=== PATIENT | female | born 1955 | race Caucasian/White ===

== ENCOUNTER 2019-04-14 08:11 | Emergency (ER) | payer OTHER ==
[2019-04-14 08:41] LABS: #Lymphocytes 1.3 thou/uL (1.20-3.40); #Monocytes 0.6 thou/uL (0.11-0.59); #Neutrophils 9.9 thou/uL (1.40-6.50); %Basophils 0.3 % (0.0-1.0); %Eosinophils 0.4 % (0.0-10.0); %Lymphocytes 10.7 % (21.0-51.0); %Monocytes 4.9 % (0.0-10.0); %Neutrophils 83.7 % (42.0-75.0); Hemoglobin 15.9 g/dL (12.0-16.0); Mean Corpuscular HGB CONC 33.7 g/dL (32.0-36.0); Mean Corpuscular Hemoglobin 29.9 pg (27.0-31.0); Mean Corpuscular Volume 88.9 fL (78.0-98.0); Mean Platelet Volume 7.4 fL (7.4-10.4); Platelet Count 388 thou/uL (130-400); RBC Distribution Width 11.8 % (11.5-14.5); Red Blood Cell (RBC) Count 5.31 mill/uL (4.20-5.40); White Blood Cell (WBC) Count 11.9 thou/uL (4.8-10.8)
[2019-04-14] MEDS ORDERED: Lorazepam 2 MG/ML VIAL ONE (08:50)
[2019-04-14 09:03] LABS: ALT (SGPT) 26 U/L (8-55); AST (SGOT) 24 U/L (5-34); Alkaline Phosphatase 108 U/L (40-110); Anion Gap 14 mmol/L (10-20); BUN (Urea Nitrogen) 9 mg/dL (9.8-20.1); Bilirubin, Total 0.3 mg/dL (0.2-1.2); CK (CPK) 54 U/L (29-168); Calc. Creatinine Clearance 0 mL/min (70-130); Calcium 9.5 mg/dL (7.8-10.44); Carbon Dioxide 23 mmol/L (23-31); Chloride 108 mmol/L (98-107); Estimated GFR-MDRD 75; Globulin 2.3 g/dL (2.4-3.5); Glucose 83 mg/dL (80-115); Potassium 4.3 mmol/L (3.5-5.1); Protein, Total 6.3 g/dL (6.0-8.3); Sodium 141 mmol/L (136-145)
--- NOTE | 2019-04-14 09:12 | CT ---
CT HEAD WITHOUT IV CONTRAST COMPARISON: None HISTORY: Headache. TECHNIQUE: Axial CT imaging at 5 mm intervals from vertex through skull base without contrast FINDINGS: There is a subcentimeter low-density focus seen within the left frontal lobe talley radiata likely re lated to a remote area of ischemia. There is no evidence of an acute vertical infarction, hemorrhage, mass effect, or midline shift. The ventricular system is normal in size, shape, and posit ion. There is partial opacification of the right sphenoid sinus. Remaining visualized paranasal sinuses as well as mastoid air cells are clear. Osseous structures appear intact. IMPRESSION: 1. No acute intracranial abnormality is demonstrated. 2. Sinus disease involving the right sphenoid sinus.
--- NOTE | 2019-04-15 17:22 | EKG ---
Test Reason : Blood Pressure : / mmHG Vent. Rate : 079 BPM Atrial Rate : 079 BPM P-R Int : 140 ms QRS Dur : 086 ms QT Int : 390 ms P-R-T Axes : 068 047 046 degrees QTc Int : 447 ms Normal sinus rhythm Possible Left atrial enlargement Borderline ECG Confirmed by NORMA KEE, MAIDA ([id number]), editor greeting card LADI YANES ([id number]) on 04/15/2019 5:22:18 PM Referred By: Confirmed By:MAIDA GREEN MD
== END 2019-04-14 10:45 | disposition home or self-care (01) ==
LOC: ERS 08:11
DX: I16.0 Hypertensive urgency (principal); R51 Headache; E78.5 Hyperlipidemia, unspecified; E78.00 Pure hypercholesterolemia, unspecified; Z79.899 Other long term (current) drug therapy
CPT/HCPCS: 36415; 70450; 80053; 82550; 85025; 93005; 96361; 96374; 96375; J2060

== ENCOUNTER 2021-07-05 21:05 | Inpatient (IN) | payer OTHER, SELFPAY ==
[~2021-07-05 21:05] MED LIST: Iopamidol-370 76% 500 ML 1 ML ONE
[2021-07-05 22:14] LABS: Hemoglobin 13.3 g/dL (12.0-16.0); Mean Corpuscular HGB CONC 33.2 g/dL (32.0-36.0); Mean Corpuscular Hemoglobin 31.4 pg (27.0-31.0); Mean Corpuscular Volume 94.7 fL (78.0-98.0); Mean Platelet Volume 7.4 fL (7.4-10.4); Platelet Count 278 thou/uL (130-400); RBC Distribution Width 11.6 % (11.5-14.5); Red Blood Cell (RBC) Count 4.24 mill/uL (4.20-5.40); White Blood Cell (WBC) Count 15.5 thou/uL (4.8-10.8)
[2021-07-05 22:17] LABS: Bacteria/HPF 4+ HPF (None Seen); Bilirubin Negative (Negative); Blood, Urine Trace (Negative); Clarity Turbid (Clear); Glucose, Urine (Dipstick) Normal (Negative); Ketone, Urine 60 mg/dL (Negative); Leukocyte Negative Leu/uL (Negative); Nitrite Negative (Negative); Protein, Urine (Dipstick) 70 mg/dL (Neg-Trace); RBC/HPF 0-3 HPF (0-3); Renal Epithelial 0-3 HPF (None Seen); Specific Gravity, Urine 1.022 (1.002-1.036); Urobilinogen Normal mg/dL (Less than 2); pH, Urine 5.5 (5.0-9.0)
[2021-07-05 22:33] LABS: ALT (SGPT) 38 U/L (8-55); AST (SGOT) 55 U/L (5-34); Albumin 3.2 g/dL (3.4-4.8); Alkaline Phosphatase 96 U/L (40-110); Anion Gap 22 mmol/L (10-20); BUN (Urea Nitrogen) 25 mg/dL (9.8-20.1); Bilirubin, Total 0.5 mg/dL (0.2-1.2); Calc. Creatinine Clearance 0 mL/min (70-130); Calcium 9.1 mg/dL (7.8-10.44); Carbon Dioxide 21 mmol/L (23-31); Chloride 102 mmol/L (98-107); Globulin 2.5 g/dL (2.4-3.5); Glucose 115 mg/dL (80-115); Potassium 4.2 mmol/L (3.5-5.1); Protein, Total 5.7 g/dL (5.8-8.1); Sodium 141 mmol/L (136-145)
[2021-07-05 22:35] LABS: Band 19 % (5-11); Lymphocytes 2 % (21-51); MDiff Complete? YES; Monocytes 7 % (0-10); Myelocyte 6 % (0-0); Neutrophil 66 % (42-75); Platelet Morphology Comment Appears Adequate; RBC Morphology Normal
[2021-07-05 22:57] LABS: CKMB 5.1 ng/mL (0-6.6)
[2021-07-05] MEDS ORDERED: Enoxaparin Sodium 60 MG/0.6 ML SYRINGE ONE (23:24)
[2021-07-05] MEDS ORDERED: Lorazepam 2 MG/ML VIAL ONE (23:30)
[2021-07-05 23:39] LABS: INR-International Normal Ratio 1.1; PTT 32.6 sec (22.9-36.1); Prothrombin Time 14.8 sec (12.0-14.7)
[2021-07-06 01:02] LABS: Lactic Acid 1.3 mmol/L (0.5-2.2)
[2021-07-06 01:25] LABS: Troponin I 2.035 ng/mL (< 0.028)
[2021-07-06] MEDS ORDERED: Ondansetron PF 4 MG/2 ML Vial IVP PRN (01:31)
[2021-07-06] MEDS ORDERED: cefTRIAXone\\ROCEPHIN 1 GM VIAL ONE (01:53)
[2021-07-06] MEDS: cefTRIAXone\\ROCEPHIN 1 GM in Sodium Chloride 0.9% 100 ML IVPB SCH (02:07)
[2021-07-06] MEDS ORDERED: Azithromycin 500 MG VIAL ONE (03:00)
[2021-07-06] MEDS: Azithromycin 500 MG in Sodium Chloride 0.9% 250 ML 250 ML IVPB SCH (03:24)
[2021-07-06 03:35] LABS: Hemoglobin 12.2 g/dL (12.0-16.0); Mean Corpuscular HGB CONC 33.6 g/dL (32.0-36.0); Mean Corpuscular Hemoglobin 31.3 pg (27.0-31.0); Mean Corpuscular Volume 93.2 fL (78.0-98.0); Mean Platelet Volume 7.3 fL (7.4-10.4); Platelet Count 265 thou/uL (130-400); RBC Distribution Width 11.6 % (11.5-14.5); Red Blood Cell (RBC) Count 3.88 mill/uL (4.20-5.40); White Blood Cell (WBC) Count 10.9 thou/uL (4.8-10.8)
[2021-07-06 03:53] LABS: Anion Gap 19 mmol/L (10-20); BUN (Urea Nitrogen) 25 mg/dL (9.8-20.1); Band 19 % (5-11); Calc. Creatinine Clearance 73 mL/min (70-130); Calcium 8.7 mg/dL (7.8-10.44); Carbon Dioxide 18 mmol/L (23-31); Chloride 103 mmol/L (98-107); Glucose 185 mg/dL (80-115); Lymphocytes 2 % (21-51); MDiff Complete? YES; Monocytes 3 % (0-10); Myelocyte 7 % (0-0); Neutrophil 69 % (42-75); Platelet Morphology Comment Appears Adequate; Potassium 4.3 mmol/L (3.5-5.1); RBC Morphology Normal; Sodium 136 mmol/L (136-145)
[2021-07-06] MEDS ORDERED: ALPRAZolam 0.25 MG TAB ONE ×3 (05:26→15:26)
[2021-07-06] MEDS ORDERED: ALPRAZolam 0.25 MG TAB PO SCH (05:30)
[2021-07-06] MEDS ORDERED: Albuterol 200 PUFF (6.7GM INHALER) INH PRN (08:38)
[2021-07-06] MEDS ORDERED: Famotidine 20 MG TAB PO SCH (09:00)
[2021-07-06] MEDS ORDERED: Famotidine 20 MG TAB ONE (09:40)
[2021-07-06] MEDS ORDERED: Ascorbic Acid 500 mg Chewable Tablet ONE (09:42)
[2021-07-06] MEDS ORDERED: Zinc Sulfate 220 MG CAP ONE (09:42)
[2021-07-06] MEDS ORDERED: REMDESIVIR 200 MG in Sodium Chloride 0.9% 250 ML 210 ML IV SCH (09:45)
[2021-07-06 09:53] LABS: Magnesium 1.5 mg/dL (1.6-2.6)
[2021-07-06] MEDS: Ascorbic Acid 500 mg Chewable Tablet PO SCH (09:59)
[2021-07-06] MEDS: Aspirin 81 mg Enteric Coated Tablet PO SCH (10:01)
[2021-07-06] MEDS ORDERED: Aspirin 81 mg Enteric Coated Tablet ONE (10:01)
[2021-07-06] MEDS: Zinc Sulfate 220 MG CAP PO SCH (10:02)
[2021-07-06] MEDS: Dexamethasone 10 MG/ML VIAL SLOW IVP SCH ×2 (10:03→21:08)
[2021-07-06] MEDS ORDERED: Enoxaparin Sodium 60 MG/0.6 ML SYRINGE ONE (10:10)
[2021-07-06] MEDS: Enoxaparin Sodium 60 MG/0.6 ML SYRINGE SC SCH ×2 (10:12→21:08)
[2021-07-06] MEDS ORDERED: Magnesium Sulfate 4 GM in Sodium Chloride 0.9% 250 ML 250 ML IVPB SCH (11:15)
[2021-07-06] MEDS: Multivit, Therapeutic 1 TAB PO SCH (11:33)
[2021-07-06] MEDS: ALPRAZolam 0.25 MG TAB PO PRN ×3 (11:33→21:08)
[2021-07-06] MEDS: Loperamide HCl 2 MG CAP PO PRN (17:05)
[2021-07-06] MEDS: Albuterol 200 PUFF (6.7GM INHALER) INH SCH ×3 (17:05→23:23)
[2021-07-06 18:11] VITALS: BMI 22.4
[2021-07-06 20:54] LABS: Critical Call Chem Troponin I RESULT DECREASING
[2021-07-06] MEDS: Mometasone 200 MCG/Formoterol 5 MCG 120 PUFF INHALER INH SCH (21:08)
[2021-07-07 00:10] LABS: SARS-CoV-2 PCR by NAA DETECTED (NotDetected)
[2021-07-07] MEDS: cefTRIAXone\\ROCEPHIN 1 GM in Sodium Chloride 0.9% 100 ML IVPB SCH (02:03)
[2021-07-07] MEDS: Azithromycin 500 MG in Sodium Chloride 0.9% 250 ML 250 ML IVPB SCH (02:55)
[2021-07-07] MEDS: Albuterol 200 PUFF (6.7GM INHALER) INH SCH ×6 (03:00→20:22)
[2021-07-07] MEDS: ALPRAZolam 0.25 MG TAB PO PRN ×4 (03:59→22:19)
[2021-07-07 06:10] LABS: Band 21 % (5-11); Hemoglobin 11.2 g/dL (12.0-16.0); Hypochromia SLIGHT = 6-15 cells (100X) (0-5/hpf); Lymphocytes 3 % (21-51); MDiff Complete? YES; Mean Corpuscular HGB CONC 33.9 g/dL (32.0-36.0); Mean Corpuscular Hemoglobin 31.6 pg (27.0-31.0); Mean Corpuscular Volume 93.1 fL (78.0-98.0); Mean Platelet Volume 7.6 fL (7.4-10.4); Metamyelocyte 1 % (0-0); Monocytes 11 % (0-10); Neutrophil 64 % (42-75); Platelet Count 345 thou/uL (130-400); Platelet Morphology Comment Appears Adequate; RBC Distribution Width 11.4 % (11.5-14.5); Red Blood Cell (RBC) Count 3.55 mill/uL (4.20-5.40)
[2021-07-07 06:11] LABS: Anion Gap 12 mmol/L (10-20); BUN (Urea Nitrogen) 22 mg/dL (9.8-20.1); Calc. Creatinine Clearance 81 mL/min (70-130); Carbon Dioxide 25 mmol/L (23-31); Chloride 104 mmol/L (98-107); Glucose 164 mg/dL (80-115); Potassium 3.7 mmol/L (3.5-5.1); Sodium 137 mmol/L (136-145)
[2021-07-07] MEDS: Mometasone 200 MCG/Formoterol 5 MCG 120 PUFF INHALER INH SCH ×2 (06:15→18:52)
[2021-07-07 06:17] LABS: ALT (SGPT) 69 U/L (8-55); AST (SGOT) 80 U/L (5-34); Albumin 2.6 g/dL (3.4-4.8); Alkaline Phosphatase 80 U/L (40-110); Bilirubin, Direct 0.2 mg/dL (0.1-0.3); Bilirubin, Total 0.2 mg/dL (0.2-1.2); Protein, Total 5.3 g/dL (5.8-8.1)
[2021-07-07 06:18] LABS: CRP (Inflammatory) 15.92 mg/dL (= or < 0.5); Magnesium 2.6 mg/dL (1.6-2.6)
[2021-07-07] MEDS ORDERED: REMDESIVIR 100 MG in Sodium Chloride 0.9% 250 ML 230 ML IV SCH (09:00)
[2021-07-07] MEDS: Dexamethasone 10 MG/ML VIAL SLOW IVP SCH ×2 (09:36→20:21)
[2021-07-07] MEDS: Enoxaparin Sodium 60 MG/0.6 ML SYRINGE SC SCH ×2 (09:36→20:22)
[2021-07-07] MEDS: Ascorbic Acid 500 mg Chewable Tablet PO SCH (09:36)
[2021-07-07] MEDS: Multivit, Therapeutic 1 TAB PO SCH (09:36)
[2021-07-07] MEDS: Aspirin 81 mg Enteric Coated Tablet PO SCH (09:36)
[2021-07-07] MEDS: REMDESIVIR 100 MG in Sodium Chloride 0.9% 250 ML 230 ML IV SCH (09:37)
[2021-07-07] MEDS: Zinc Sulfate 220 MG CAP PO SCH (09:38)
[2021-07-08] MEDS: cefTRIAXone\\ROCEPHIN 1 GM in Sodium Chloride 0.9% 100 ML IVPB SCH (01:55)
[2021-07-08] MEDS: Albuterol 200 PUFF (6.7GM INHALER) INH SCH ×7 (02:12→23:42)
[2021-07-08] MEDS: Acetaminophen 325 MG TAB PO PRN ×3 (02:14→22:15)
[2021-07-08] MEDS ORDERED: Azithromycin 500 MG in Sodium Chloride 0.9% 250 ML 250 ML IVPB SCH (03:00)
[2021-07-08] MEDS: ALPRAZolam 0.25 MG TAB PO PRN ×4 (04:34→22:15)
[2021-07-08 06:04] LABS: ALT (SGPT) 80 U/L (8-55); AST (SGOT) 57 U/L (5-34); Albumin 2.6 g/dL (3.4-4.8); Alkaline Phosphatase 79 U/L (40-110); Bilirubin, Direct 0.2 mg/dL (0.1-0.3); Bilirubin, Total 0.3 mg/dL (0.2-1.2); Protein, Total 5.1 g/dL (5.8-8.1)
[2021-07-08] MEDS: Ascorbic Acid 500 mg Chewable Tablet PO SCH (07:53)
[2021-07-08] MEDS: Aspirin 81 mg Enteric Coated Tablet PO SCH (07:54)
[2021-07-08] MEDS: Dexamethasone 10 MG/ML VIAL SLOW IVP SCH ×2 (07:54→20:49)
[2021-07-08] MEDS: Enoxaparin Sodium 60 MG/0.6 ML SYRINGE SC SCH ×2 (07:54→20:49)
[2021-07-08] MEDS: Multivit, Therapeutic 1 TAB PO SCH ×2 (07:54→10:11)
[2021-07-08] MEDS: REMDESIVIR 100 MG in Sodium Chloride 0.9% 250 ML 230 ML IV SCH (07:54)
[2021-07-08] MEDS: Zinc Sulfate 220 MG CAP PO SCH (07:55)
[2021-07-08 08:37] LABS: Anion Gap 15 mmol/L (10-20); BUN (Urea Nitrogen) 27 mg/dL (9.8-20.1); Calc. Creatinine Clearance 80 mL/min (70-130); Carbon Dioxide 19 mmol/L (23-31); Chloride 108 mmol/L (98-107); Glucose 141 mg/dL (80-115); Potassium 4.1 mmol/L (3.5-5.1); Sodium 138 mmol/L (136-145)
[2021-07-08 08:38] LABS: Calcium 7.8 mg/dL (7.8-10.44)
[2021-07-08 09:40] LABS: Band 13 % (5-11); Hemoglobin 12.7 g/dL (12.0-16.0); Lymphocytes 3 % (21-51); MDiff Complete? YES; Mean Corpuscular HGB CONC 33.3 g/dL (32.0-36.0); Mean Corpuscular Hemoglobin 31.3 pg (27.0-31.0); Mean Platelet Volume 7.8 fL (7.4-10.4); Neutrophil 84 % (42-75); Platelet Count 442 thou/uL (130-400); RBC Distribution Width 11.5 % (11.5-14.5); Red Blood Cell (RBC) Count 4.06 mill/uL (4.20-5.40); White Blood Cell (WBC) Count 22.3 thou/uL (4.8-10.8)
[2021-07-08] MEDS: Mometasone 200 MCG/Formoterol 5 MCG 120 PUFF INHALER INH SCH ×2 (12:00→20:38)
[2021-07-09] MEDS: Acetaminophen 325 MG TAB PO PRN ×4 (03:55→22:20)
[2021-07-09] MEDS: ALPRAZolam 0.25 MG TAB PO PRN ×4 (03:55→22:20)
[2021-07-09] MEDS: Albuterol 200 PUFF (6.7GM INHALER) INH SCH ×6 (05:24→20:33)
[2021-07-09] MEDS: Multivit, Therapeutic 1 TAB PO SCH (09:19)
[2021-07-09] MEDS: Mometasone 200 MCG/Formoterol 5 MCG 120 PUFF INHALER INH SCH ×2 (09:19→18:24)
[2021-07-09] MEDS: Enoxaparin Sodium 60 MG/0.6 ML SYRINGE SC SCH (09:19)
[2021-07-09] MEDS: Cefdinir 300 MG CAP PO SCH (09:19)
[2021-07-09] MEDS: Ascorbic Acid 500 mg Chewable Tablet PO SCH (09:19)
[2021-07-09] MEDS: Zinc Sulfate 220 MG CAP PO SCH (09:19)
[2021-07-09] MEDS: Dexamethasone 10 MG/ML VIAL SLOW IVP SCH ×2 (09:19→20:33)
[2021-07-09] MEDS: Aspirin 81 mg Enteric Coated Tablet PO SCH (09:19)
[2021-07-09] MEDS: REMDESIVIR 100 MG in Sodium Chloride 0.9% 250 ML 230 ML IV SCH (09:20)
[2021-07-09 12:48] LABS: Albumin 2.8 g/dL (3.4-4.8)
[2021-07-09 12:50] LABS: Calcium 8.3 mg/dL (7.8-10.44); Chloride 105 mmol/L (98-107); Potassium 3.6 mmol/L (3.5-5.1); Sodium 136 mmol/L (136-145)
[2021-07-09 12:51] LABS: Glucose 102 mg/dL (80-115); Protein, Total 5.3 g/dL (5.8-8.1)
[2021-07-09 12:52] LABS: Anion Gap 11 mmol/L (10-20); Carbon Dioxide 24 mmol/L (23-31)
[2021-07-09 12:53] LABS: Bilirubin, Total 0.5 mg/dL (0.2-1.2)
[2021-07-09 12:54] LABS: Alkaline Phosphatase 79 U/L (40-110)
[2021-07-09 12:55] LABS: BUN (Urea Nitrogen) 22 mg/dL (9.8-20.1); Calc. Creatinine Clearance 80 mL/min (70-130)
[2021-07-09 12:56] LABS: AST (SGOT) 40 U/L (5-34); Bilirubin, Direct 0.3 mg/dL (0.1-0.3)
[2021-07-09 12:57] LABS: ALT (SGPT) 81 U/L (8-55)
[2021-07-09] MEDS: Loperamide HCl 2 MG CAP PO PRN (18:23)
[2021-07-09] MEDS: busPIRone HCl 10 MG TAB PO SCH (20:32)
[2021-07-09] MEDS: Apixaban 5 MG TAB PO SCH (20:32)
[2021-07-09] MEDS: Lisinopril 5 MG TAB PO SCH (20:32)
[2021-07-09] MEDS ORDERED: Lisinopril 2.5 MG TAB PO SCH (21:00)
[2021-07-09] MEDS ORDERED: Atorvastatin Calcium 20 MG TAB PO SCH (21:00)
[2021-07-10] MEDS: Albuterol 200 PUFF (6.7GM INHALER) INH SCH ×3 (03:01→10:38)
[2021-07-10] MEDS: ALPRAZolam 0.25 MG TAB PO PRN ×2 (04:39→10:32)
[2021-07-10] MEDS: Acetaminophen 325 MG TAB PO PRN ×2 (04:39→10:32)
[2021-07-10] MEDS: Mometasone 200 MCG/Formoterol 5 MCG 120 PUFF INHALER INH SCH (06:30)
[2021-07-10 06:37] LABS: ALT (SGPT) 68 U/L (8-55); AST (SGOT) 29 U/L (5-34); Albumin 2.6 g/dL (3.4-4.8); Alkaline Phosphatase 71 U/L (40-110); Anion Gap 11 mmol/L (10-20); BUN (Urea Nitrogen) 19 mg/dL (9.8-20.1); Bilirubin, Direct 0.2 mg/dL (0.1-0.3); Bilirubin, Total 0.5 mg/dL (0.2-1.2); Calc. Creatinine Clearance 77 mL/min (70-130); Calcium 8.4 mg/dL (7.8-10.44); Carbon Dioxide 23 mmol/L (23-31); Chloride 107 mmol/L (98-107); Glucose 114 mg/dL (80-115); Potassium 4.4 mmol/L (3.5-5.1); Protein, Total 4.9 g/dL (5.8-8.1); Sodium 137 mmol/L (136-145)
[2021-07-10] MEDS ORDERED: Carvedilol 6.25 MG TAB PO SCH (08:00)
[2021-07-10] MEDS ORDERED: Hydrochlorothiazide 25 MG TAB PO SCH (09:00)
[2021-07-10] MEDS ORDERED: Dexamethasone 10 MG/ML VIAL SLOW IVP SCH (09:00)
[2021-07-10] MEDS: Aspirin 81 mg Enteric Coated Tablet PO SCH (09:18)
[2021-07-10] MEDS: Ascorbic Acid 500 mg Chewable Tablet PO SCH (09:18)
[2021-07-10] MEDS: Cefdinir 300 MG CAP PO SCH (09:18)
[2021-07-10] MEDS: Apixaban 5 MG TAB PO SCH (09:18)
[2021-07-10] MEDS: busPIRone HCl 10 MG TAB PO SCH (09:18)
[2021-07-10] MEDS: Zinc Sulfate 220 MG CAP PO SCH (09:21)
[2021-07-10] MEDS: Multivit, Therapeutic 1 TAB PO SCH (09:21)
[2021-07-10] MEDS: Lisinopril 5 MG TAB PO SCH (09:21)
[2021-07-10] MEDS: REMDESIVIR 100 MG in Sodium Chloride 0.9% 250 ML 230 ML IV SCH (09:21)
[2021-07-10 11:53] VITALS: BP 173/83; TEMP 98.1
[2021-07-10] MEDS: Loperamide HCl 2 MG CAP PO PRN (14:28)
== END 2021-07-10 15:20 | disposition home or self-care (01) | DRG 871 ==
LOC: ERS 21:05 → ERHOLD 07-06 00:45 → OBSVTOIN 07-06 00:45 → 2SW 07-06 15:36
PROVIDERS: ADMIT Internal Medicine; ATTEND Internal Medicine
PROC: 3E0333Z Introduction of Anti-inflammatory into Peripheral Vein, Percutaneous Approach (ICD-10-PCS; principal; 2021-07-06)
PROC: XW033E5 Introduction of Remdesivir Anti-infective into Peripheral Vein, Percutaneous Approach, New Technology Group 5 (ICD-10-PCS; 2021-07-06)
DX: A41.9 Sepsis, unspecified organism (principal); J96.01 Acute respiratory failure with hypoxia; U07.1 COVID-19; J12.82 Pneumonia due to coronavirus disease 2019; I26.99 Other pulmonary embolism without acute cor pulmonale; I21.A1 Myocardial infarction type 2; J43.9 Emphysema, unspecified; E78.5 Hyperlipidemia, unspecified; E78.00 Pure hypercholesterolemia, unspecified; I10 Essential (primary) hypertension; Z96.642 Presence of left artificial hip joint; K80.20 Calculus of gallbladder without cholecystitis without obstruction; I25.10 Atherosclerotic heart disease of native coronary artery without angina pectoris; Z84.1 Family history of disorders of kidney and ureter; Z80.52 Family history of malignant neoplasm of bladder; Z87.891 Personal history of nicotine dependence; Z98.51 Tubal ligation status; Z90.49 Acquired absence of other specified parts of digestive tract; Z79.899 Other long term (current) drug therapy; Z82.49 Family history of ischemic heart disease and other diseases of the circulatory system
CPT/HCPCS: 36415; 71045; 71275; 80048; 80053; 80076; 81003; 81015; 82553; 82728; 83605; 83735; 83880; 84484; 85025; 85610; 85730; 86140; 87040; 93005; 93306; 94760; 96372; 96374; J0456; J0696; J1100; J1650; J2060; J3475; J3490; J7050; U0003; U0005

== ENCOUNTER 2022-05-25 09:24 | Outpatient (CLI) | payer MEDICARE | END 2022-05-25 09:25 | disposition home or self-care (01) | LOC: SCSMRI 09:24 | PROVIDERS: ATTEND Neurological Surgery | DX: M48.062 Spinal stenosis, lumbar region with neurogenic claudication (principal); M54.2 Cervicalgia; M47.816 Spondylosis without myelopathy or radiculopathy, lumbar region; M47.812 Spondylosis without myelopathy or radiculopathy, cervical region; M43.12 Spondylolisthesis, cervical region; M51.36 Other intervertebral disc degeneration, lumbar region | CPT/HCPCS: 72050; 72110; 72141 ==

== ENCOUNTER 2025-02-16 13:56 | Outpatient (CLI) | payer MEDICARE | END 2025-02-16 13:57 | disposition home or self-care (01) | LOC: RAD 13:56 | PROVIDERS: ATTEND Internal Medicine | DX: J44.9 Chronic obstructive pulmonary disease, unspecified (principal); R91.8 Other nonspecific abnormal finding of lung field | CPT/HCPCS: 71046 ==